=== PATIENT | male | born 1960 | race Caucasian/White ===

== ENCOUNTER 2017-05-17 06:23 | Outpatient (CLI) | payer OTHER ==
[~2017-05-17 06:23] MED LIST: LODINE XL500 MG PO; NEURONTIN800 MG PO; OMEPRAZOLE20 MG PO; SIMVASTATIN10 MG PO; TRAM1TAB98 PO
== END 2017-05-17 06:30 | disposition home or self-care (01) ==
LOC: LAB 06:23
DX: I10 Essential (primary) hypertension (principal); E78.2 Mixed hyperlipidemia; N39.0 Urinary tract infection, site not specified; Z12.11 Encounter for screening for malignant neoplasm of colon

== ENCOUNTER 2017-09-09 06:38 | Outpatient (CLI) | payer OTHER | END 2017-09-09 06:53 | disposition home or self-care (01) | LOC: LAB 06:38 | DX: N39.0 Urinary tract infection, site not specified (principal); N40.0 Benign prostatic hyperplasia without lower urinary tract symptoms ==

== ENCOUNTER 2017-10-19 10:28 | Emergency (ER) | payer OTHER ==
[~2017-10-19] VITALS: Ht 162.6 cm; Wt 119.7 kg
[2017-10-19] MEDS ORDERED: ULTRACET (11:01)
[2017-10-19] MEDS ORDERED: ZANTAC150 M3 PO (15:01)
[2017-10-19] MEDS ORDERED: INTESTINEX680 M1 PO (15:01)
== END 2017-10-19 15:41 | disposition home or self-care (01) ==
LOC: ER 10:28
DX: K52.89 Other specified noninfective gastroenteritis and colitis (principal); J11.1 Influenza due to unidentified influenza virus with other respiratory manifestations

== ENCOUNTER 2018-02-24 11:25 | Outpatient (CLI) | payer OTHER ==
[~2018-02-24 11:25] MED LIST changes: +INTESTINEX680 M1 PO; +ULTRACET; +ZANTAC150 M3 PO
== END 2018-02-24 11:29 | disposition home or self-care (01) ==
LOC: SONOGRAMA 11:25
DX: M25.551 Pain in right hip (principal); M48.07 Spinal stenosis, lumbosacral region; M54.17 Radiculopathy, lumbosacral region; M54.16 Radiculopathy, lumbar region

== ENCOUNTER 2018-03-16 10:16 | Outpatient (CLI) | payer OTHER | END 2018-03-16 10:26 | disposition home or self-care (01) | LOC: SONOGRAMA 10:16 | DX: N40.1 Benign prostatic hyperplasia with lower urinary tract symptoms (principal) ==

== ENCOUNTER 2018-04-01 09:58 | Emergency (ER) | payer OTHER ==
[~2018-04-01] VITALS: Ht 162.6 cm; Wt 125.2 kg
[2018-04-01] MEDS ORDERED: POTASSIUM99 MG PO (10:24)
== END 2018-04-01 13:38 | disposition home or self-care (01) ==
LOC: ER 09:58
DX: M62.830 Muscle spasm of back (principal); M54.89 Other dorsalgia

== ENCOUNTER 2018-05-11 07:06 | Outpatient (CLI) | payer OTHER ==
[~2018-05-11 07:06] MED LIST changes: +POTASSIUM99 MG PO
== END 2018-05-11 07:19 | disposition home or self-care (01) ==
LOC: RAD 07:06 → MRI 10:15
DX: M54.5 Low back pain (principal); M54.16 Radiculopathy, lumbar region; G47.33 Obstructive sleep apnea (adult) (pediatric); S34 Injury of lumbar and sacral spinal cord and nerves at abdomen, lower back and pelvis level
CPT/HCPCS: 72148

== ENCOUNTER 2018-07-15 12:12 | Emergency (ER) | payer OTHER ==
[~2018-07-15] VITALS: Ht 162.6 cm; Wt 127.0 kg
[2018-07-15] MEDS ORDERED: TEMAZEPAM30 MG (12:23)
[2018-07-15] MEDS ORDERED: CLONAZEPAM2 MG (12:23)
[2018-07-15] MEDS ORDERED: BENADRYL50 MG (12:23)
== END 2018-07-15 14:59 | disposition home or self-care (01) ==
LOC: ER 12:12
DX: G56.32 Lesion of radial nerve, left upper limb (principal)

== ENCOUNTER 2018-12-14 14:42 | Outpatient (CLI) | payer OTHER ==
[~2018-12-14 14:42] MED LIST changes: +BENADRYL50 MG; +CLONAZEPAM2 MG; +TEMAZEPAM30 MG
== END 2018-12-14 14:46 | disposition home or self-care (01) ==
LOC: LAB 14:42
DX: N20.0 Calculus of kidney (principal)

== ENCOUNTER 2018-12-26 08:18 | Outpatient (CLI) | payer OTHER | END 2018-12-26 08:26 | disposition home or self-care (01) | LOC: TOM 08:18 | DX: K35.21 Acute appendicitis with generalized peritonitis, with abscess (principal); K35.20 Acute appendicitis with generalized peritonitis, without abscess | CPT/HCPCS: 74177; Q9965 ==

== ENCOUNTER 2019-01-05 13:34 | Day surgery (SDC) | payer OTHER | END 2019-01-05 17:40 | disposition home or self-care (01) | LOC: AMB-ENDOS 13:34 | DX: D12.4 Benign neoplasm of descending colon (principal); K64.2 Third degree hemorrhoids ==

== ENCOUNTER 2019-06-08 08:15 | Emergency (ER) | payer OTHER ==
[~2019-06-08] VITALS: Ht 162.6 cm; Wt 122.5 kg
[2019-06-08] MEDS ORDERED: BACTRIM DS TAB1 EACH PO (09:59)
[2019-06-08] MEDS ORDERED: DICLOFENAC SODI75 MG PO (09:59)
== END 2019-06-08 10:28 | disposition home or self-care (01) ==
LOC: ER 08:15
DX: L05.01 Pilonidal cyst with abscess (principal); B96.89 Other specified bacterial agents as the cause of diseases classified elsewhere

== ENCOUNTER 2020-10-03 09:14 | Outpatient (CLI) | payer OTHER ==
[~2020-10-03 09:14] MED LIST changes: +BACTRIM DS TAB1 EACH PO; +DICLOFENAC SODI75 MG PO
== END 2020-10-03 09:22 | disposition home or self-care (01) ==
LOC: RAD 09:14
PROVIDERS: ATTEND Internal Medicine
DX: M51.17 Intervertebral disc disorders with radiculopathy, lumbosacral region (principal); M43.17 Spondylolisthesis, lumbosacral region

== ENCOUNTER 2021-02-18 08:03 | Outpatient (CLI) | payer OTHER | END 2021-02-18 08:11 | disposition home or self-care (01) | LOC: SONOGRAMA 08:03 | PROVIDERS: ATTEND Otolaryngology | DX: R22.1 Localized swelling, mass and lump, neck (principal) ==

== ENCOUNTER 2021-03-18 10:21 | Outpatient (CLI) | payer OTHER | END 2021-03-18 10:29 | disposition home or self-care (01) | LOC: RX STUDY 10:21 | PROVIDERS: ATTEND Internal Medicine | DX: R13.19 Other dysphagia (principal); K22.89 Other specified disease of esophagus ==

== ENCOUNTER 2022-09-10 11:24 | Outpatient (CLI) | payer OTHER ==
[~2022-09-10 11:24] MED LIST changes: +KETO10TA2 PO; +LEVSIN/SL0.125 MG SL; +PEPCID AC20 MG PO
== END 2022-09-10 11:26 | disposition home or self-care (01) ==
LOC: NUCLEAR 11:24
PROVIDERS: ATTEND Internal Medicine
DX: M81.0 Age-related osteoporosis without current pathological fracture (principal)

== ENCOUNTER 2023-05-25 10:29 | Outpatient (CLI) | payer OTHER | END 2023-05-25 10:41 | disposition home or self-care (01) | LOC: SONOGRAMA 10:29 | PROVIDERS: ATTEND Family Medicine | DX: R10.2 Pelvic and perineal pain (principal); M25.552 Pain in left hip ==